=== PATIENT | male | born 1945 | race Caucasian/White ===

== ENCOUNTER 2016-12-11 03:23 | Emergency (ER) | payer BC, MEDICARE ==
[~2016-12-11] VITALS: Ht 185.4 cm; Wt 95.2 kg
--- NOTE | ~2016-12-11 | EKG ---
PATIENT: JAZMIN ROMERO UNIT #: [id number] Ventricular Rate: 110 BPM Atrial Rate: 110 BPM QRS Duration: 84 ms Q-T Interval: 348 ms QTC Calculation(Bezet): 470 ms Calculated R [place]: 3 degrees Calculated T [place]: 133 degrees Diagnosis Line: Sinus tachycardia Diagnosis Line: Junctional rhythm has replaced Sinus rhythm Diagnosis Line: ST now depressed in Anterior leads Diagnosis Line: Inverted T waves have replaced nonspecific T wave Diagnosis Line: abnormality in Lateral leads Diagnosis Line: Confirmed by ELXI BRANNON MD ([id number]) on Diagnosis Line: 12/15/2016 10:40:36 AM INTERPRETING MD: CLOVIS LUTHER
--- NOTE | ~2016-12-11 | CT57 ---
[facility]. [facility] A Service of [facility] RADIOLOGY TEXT RESULTS PATIENT: JAZMIN ROMERO LOCATION: SED : 43 UNIT #: [id number] AGE: [address]: Denny Godfrey MD SEX: M ORDER DR: [id number] [place] [id number] E MR#: [id number] Acc #: [id number] NAME: JAZMIN ROMERO : 1945 SEX: M STUDY DATE/TIME: 12/11/2016 5:00 UNIT: SED ROOM: STUDY DESCRIPTION: CT Chest Wo Cont Attending Physician: Denny Godfrey M.D. Ordering Physician: Denny Godfrey M.D. Primary Care Physician: Nick Dumont M.D. MEDICAL IMAGING REPORT This report is preliminary unless electronic signature is present. EXAM CT chest without contrast INDICATION Cough, chest pain, shortness of air for the past [address] chest. This CT exam was performed with one or more of the following radiation dose reduction techniques: automatic exposure control, adjustment of mA and/or kV according to patient size, and iterative reconstruction. COMPARISON 04/22/2016 FINDINGS Cardiomegaly. Previous CABG with coronary artery calcification. Stable scarring in the right middle lobe and right lower lobe. No new dense consolidation. There is patchy ground-glass opacity in the right upper lobe that is new since the previous study. No pleural fluid or pneumothorax. No adenopathy. Uncomplicated cholelithiasis. Right renal cyst. Trace amount of perihepatic ascites. No aggressive appearing bone lesion. IMPRESSION 1. Cardiomegaly. Previous CABG. 2. Patchy ground-glass opacity in the right upper lobe is nonspecific and could represent infectious or inflammatory change or asymmetric edema. [facility] A Service [facility] RADIOLOGY TEXT RESULTS PATIENT: JAZMIN ROMERO LOCATION: SED : 44 UNIT #: [id number] AGE: [address]: Denny Godfrey MD SEX: M ORDER DR: 3. Stable scarring in the right middle lobe and right lower lobe. 4. No dense consolidation Dictated by... Sumeet Munoz M.D. THIS IS AN ELECTRONICALLY VERIFIED REPORT Sumeet Munoz M.D. at 12/11/2016 10:01 PM Marleny TD: 12/11/2016 08:49 JOB #: [id number] MEDICAL IMAGING REPORT Page 1 of 1
--- NOTE | ~2016-12-11 | CR72 ---
[facility]. [facility] A Service of [facility] & [facility] RADIOLOGY TEXT RESULTS PATIENT: JAZMIN ROMERO LOCATION: SED : 44 UNIT #: [id number] AGE: [address]: Denny Godfrey MD SEX: M ORDER DR: [id number] [place] [address] [id number] E MR#: [id number] Acc #: [id number] NAME: JAZMIN ROMERO : 1945 SEX: M STUDY DATE/TIME: 12/11/2016 4:04 UNIT: SED ROOM: STUDY DESCRIPTION: CR Chest Single View Portable Attending Physician: Denny Godfrey M.D. Ordering Physician: Denny Godfrey M.D. Primary Care Physician: Nick Dumont M.D. MEDICAL IMAGING REPORT This report is preliminary unless electronic signature is present. EXAM Portable chest INDICATION Shortness of air and chest pain tonight FINDINGS Stable cardiomegaly. Linear scarring or atelectasis right lung base is stable. No new dense consolidation or visible pneumothorax. IMPRESSION No active process. No change from 05/29/2016. Dictated by... Sumeet Munoz M.D. THIS IS AN ELECTRONICALLY VERIFIED REPORT Sumeet Munoz M.D. at 12/11/2016 10:01 PM LIV/georgie TD: 12/11/2016 08:42 JOB #: [id number] MEDICAL IMAGING REPORT Page 1 of 1
[~2016-12-11 03:23] MED LIST: ACETAMINOPHEN650 M1 PO; ACID CONTROL20 MG PO; ADULT TUSS100 MG/5 M PO; ADVAIR 250-501 EAC1 IH; ADVAIR 250-501 EAC1 INH; ADVAIR 250-501 EACH IH; ADVAIR 2501 DISK W/D PO; ALBUTEROL MININEB NEB; ALBUTEROL17 GM INH; AMIODARONE PO; ANTACID650 MG PO; ASPIRIN EC81 M1 PO; ASPIRIN PO; ASPIRIN81 M1 PO; ASPIRIN81 M2 PO; ATORVASTATIN CA10 MG PO; BACITRACIN OINTMENT TOP; BACITRACIN OP3.5 GM OD; BACTROBAN15 GM TOP; BENADRYL25 M1 PO; BENADRYL25 M3 PO; BIDIL PO; BIDIL TABLET1 EACH PO; BLISTEX MEDICAT10 GM TOP; CARAFATE PO; CARDURA2 MG PO; CELEBREX PO; CENTRUM SILVER1 EAC2 PO; CHLORASEPTIC177 M1 PO; CIPRO PO; COLACE CLEAR50 MG PO; COLACE1 SUPP.RE1 PR; CORDARONE200 M1 PO; COUMADIN PO; COUMADIN5 MG PO; COUMADIN6 MG PO; DESYREL50 MG PO; DIOVAN HCT 160/1 TAB PO; DOK100 MG PO; DULCOLAX10 MG/SUPP PR; DUONEB 2.5-0.5 M3 ML; FAMOTIDINE20 M1 PO; FENOFIBRATE134 MG PO; FERRO-TIME325 MG; FERRO-TIME325 MG PO; FISH OIL 1,001000 MG PO; FLOMAX0.4 M1 PO; FLOMAX0.4 MG PO; FLONASE16 GM; HYDROCODON-ACE1 EAC7 PO; HYDROCODON-ACE1 EAC9 PO; HYDROCODONE-APA1 T58 PO; IPRAT-ALBUT 0.5-3 ML INH; IRON325 ( 652 PO; KCL PO; KEFLEX; KEFLEX500 M2 PO; LANOXIN PO; LASIX PO; LASIX20 MG PO; LEVAQUIN PO; LEVEMIR SQ; LEXAPRO PO; LIPITOR PO; LISINOPRIL10 MG PO; LOPRESSOR PO; LORTAB 5/500 TA1 TA1 PO; MEGA MULTIVITA1 EACH PO; MELATONIN1 MG PO; METFORMIN HCL500 M1 PO; METFORMIN PO; METOPROLOL TAR25 MG PO; METRONIDAZOLE PO; MILK OF MAGNESIA PO; MOBIC PO; MUCINEX DM ER1 EACH PO; MULTIVITAMINS1 EAC2 PO; MYSOLINE50 MG PO; NIACIN1000 MG PO; NITROFURANTOIN100 M3 PO; NITROSTAT0.4 MG SL; NOVOLIN R100 UNITS/; NOVOLOG FL100 UNIT/1 SUBQ; NOVOLOG100 U/ML; NYSTATIN15 GM OINT TOP; OMEPRAZOLE20 M1 PO; OMEPRAZOLE40 MG PO; OMNICEF300 M1 PO; ONDANSETRON ODT4 MG PO; ONDANSETRON ODT4 MG SL; PACERONE100 MG PO; PAIN RELIEF325 M1 PO; PHENERGAN PO; PREDNISONE; PREDNISONE10 MG/DOSE PO; PREDNISONE50 MG PO; PRIMIDONE50 MG PO; PRO-AMATINE5 M1 PO; PRO-AMATINE5 MG PO; PROCRIT2000 U/ML; PROMETHAZINE12.5 MG PO; PROPANOLOL; PROPRANOLOL HCL40 MG PO; PROTONIX PO; PROVENTIL INH0.5 ML HHN; RANEXA500 MG PO; RENVELA2.4 GM PO; RENVELA800 MG PO; SENNA LAXATIVE1 TAB PO; SENOKOT S1 TA1 PO; SERTRALINE HCL100 MG PO; SINGULAIR; SINGULAIR PO; SINGULAIR5 MG PO; SLIDING SCALE INSULI; SODIUM BICARBO650 MG PO; SYMBICORT; SYMBICORT INH; TRAMADOL HCL50 M2 PO; TYLOX 5/500 CAP1 CAP PO; VITAMIN D-32000 UNIT PO; VITAMIN D35000 UNIT PO; WARFARIN SODIU2.5 M1 PO; WARFARIN SODIU2.5 MG PO; WELCHOL625 MG PO; ZESTRIL2.5 M1 PO; ZOFRAN ODT4 MG PO; ZOLOFT50 MG PO; ZYRTEC PO; [UNRECOGNIZED DRUG - OTHER]; [UNRECOGNIZED DRUG - OTHER] PO
[2016-12-11] MEDS ORDERED: POTASSIUM CHLO10 ME1 PO (03:39)
[2016-12-11] MEDS ORDERED: ZYRTEC10 M1 PO (03:40)
[2016-12-11] MEDS ORDERED: VITAMIN D (03:40)
[2016-12-11] MEDS ORDERED: PROVENTIL (03:40)
[2016-12-11 04:06] LABS: BASOPHIL# 0.1 X10e3 (0-0.3); BASOPHIL% 0.8 % (0-2.5); EOSINOPHIL# 0.1 X10e3 (0-0.7); EOSINOPHIL% 1.3 % (0.0-7.0); HEMATOCRIT 22.4 % (38.0-50.0); HEMOGLOBIN 7.7 gm/dL (13.0-16.0); LYMPHOCYTE% 10.6 % (17.0-45.0); MEAN CELL VOLUME 91.6 FL (83-96); MEAN CORPUSCULAR HEMOGLOBIN 31.4 PG (28-34); MEAN CORPUSCULAR HGB CONC 34.2 g/dL (30-36); MEAN PLATELET VOLUME 7.3 FL (6.5-11.5); MONOCYTE# 0.7 X10e3 (0-1.0); MONOCYTE% 7.4 % (3.0-12.0); NEUTROPHIL# 7.4 X10e3 (1.5-7.1); NEUTROPHIL% 79.9 % (40-75); PLATELET COUNT 122 X10e3 (140-420); RED BLOOD COUNT 2.45 X10e (3.90-5.60); RED CELL DISTRIBUTION WIDTH 16.7 % (11.0-15.5); WHITE BLOOD COUNT 9.3 X10e3 (4.0-10.5)
[2016-12-11 04:12] LABS: DIFF IND NO
[2016-12-11 04:16] LABS: INR 1.3
[2016-12-11 04:19] LABS: POC - CKMB 11.2 ng/mL (0.0-7.9); POC - MYOGLOBIN >500.0 ng/mL (0.0-169.0); POC - TROPONIN <0.05 ng/mL (<=0.05)
[2016-12-11 04:25] LABS: ALBUMIN SERUM 3.5 g/dL (3.5-5.0); BILIRUBIN, DIRECT 0.1 mg/dL (0.0-0.2); BILIRUBIN,INDIRECT 0.7 mg/dL (0.0-0.9); BILIRUBIN,TOTAL 0.8 mg/dL (0.2-2.0); CALCIUM SERUM 8.6 mg/dL (8.4-10.2); CREATININE SERUM 7.2 mg/dL (0.6-1.4); GLOM FILT RATE Estimated 6.9 mL/min (>60); POTASSIUM 4.5 mmol/L (3.5-5.1); PROTEIN TOTAL SERUM 6.8 g/dL (6.0-8.3)
[2016-12-11 04:26] LABS: PARTIAL THROMBOPLASTIN TIME <20.0 SECONDS (25.6-38.1)
== END 2016-12-11 07:45 ==
LOC: SED 03:23
PROVIDERS: Emergency Medicine
DX: J81.1 Chronic pulmonary edema (principal); I48.91 Unspecified atrial fibrillation; J45.909 Unspecified asthma, uncomplicated; I12.0 Hypertensive chronic kidney disease with stage 5 chronic kidney disease or end stage renal disease; E11.22 Type 2 diabetes mellitus with diabetic chronic kidney disease; N18.6 End stage renal disease; Z99.2 Dependence on renal dialysis; Z95.1 Presence of aortocoronary bypass graft; Z88.8 Allergy status to other drugs, medicaments and biological substances; Z79.899 Other long term (current) drug therapy; Z79.01 Long term (current) use of anticoagulants; Z79.82 Long term (current) use of aspirin
CPT/HCPCS: 36415; 71010; 71250; 80048; 80076; 82550; 82553; 83874; 84484; 85025; 85610; 85730; 93005; 96374; 99285; J1940